=== PATIENT | female | born 1945 | race Caucasian/White ===

== ENCOUNTER 2016-07-11 08:01 | Outpatient (CLI) | payer MEDICARE ==
[2016-07-11 09:25] LABS: ALT (SGPT) 19 U/L (0-55); AST (SGOT) 37 U/L (5-34); Albumin 2.8 g/dL (3.4-4.8); Alkaline Phosphatase 70 U/L (40-150); Anion Gap 14 mmol/L (10-20); BUN (Urea Nitrogen) 11 mg/dL (9.8-20.1); Bilirubin, Direct 0.9 mg/dL (0.1-0.3); Bilirubin, Total 2.9 mg/dL (0.2-1.2); Calc. Creatinine Clearance 0 mL/min (70-130); Calcium 9.2 mg/dL (7.8-10.44); Carbon Dioxide 25 mmol/L (23-31); Cardiac Risk 2.7 (Less than 4.5); Chloride 108 mmol/L (98-107); Cholesterol 119 mg/dL (< 200 Desired); Estimated GFR-MDRD 65; Glucose 91 mg/dL (83-110); HDL Cholesterol 44 mg/dL (>60 Neg Risk); LDL Cholesterol, Calculated 61 mg/dL; Potassium 4.3 mmol/L (3.5-5.1); Sodium 143 mmol/L (136-145); Triglycerides 71 mg/dL (Less than 150)
== END 2016-07-11 08:02 | disposition home or self-care (01) ==
LOC: MADLABBHPM 08:01
PROVIDERS: ATTEND Family Medicine
DX: I10 Essential (primary) hypertension (principal)
CPT/HCPCS: 36415; 80048; 80061; 80076

== ENCOUNTER 2016-07-15 08:56 | Outpatient (CLI) | payer MEDICARE ==
--- NOTE | 2016-07-15 13:34 | ULT ---
RIGHT UPPER QUADRANT SONOGRAM: History: Abnormal liver function tests. FINDINGS: A small nonshadowing echogenic material layers within the dependent portion of the gallbladder lumen . The gallbladder is distended up to 8.3 cm. There is no gallbladder wall thickening or pericholec ystic fluid. Common duct is 0.4 cm diameter. Liver is unremarkable without focal mass or intrahepa tic biliary dilatation. No free fluid is evident. IMPRESSION: Biliary sludge is evidence of chronic gallbladder dyskinesis. Gallbladder is distended. Patient wa s reportedly tender over the gallbladder fossa at the time of the exam although there were no other findings of acute cholecystitis. Clinical correlation regarding other signs and symptoms of acute c holecystitis is required. Radionuclide hepatobiliary scan could be of use to evaluate for cystic du ct patency if needed. POS: [facility]
== END 2016-07-15 08:57 | disposition home or self-care (01) ==
LOC: MADULT 08:56
PROVIDERS: ATTEND Family Medicine
DX: R94.5 Abnormal results of liver function studies (principal)
CPT/HCPCS: 76705

== ENCOUNTER 2016-08-12 08:18 | Outpatient (CLI) | payer MEDICARE ==
[2016-08-12 09:13] LABS: ALT (SGPT) 17 U/L (0-55); AST (SGOT) 35 U/L (5-34); Albumin 2.8 g/dL (3.4-4.8); Alkaline Phosphatase 74 U/L (40-150); Anion Gap 12 mmol/L (10-20); BUN (Urea Nitrogen) 13 mg/dL (9.8-20.1); Bilirubin, Total 2.8 mg/dL (0.2-1.2); Calc. Creatinine Clearance 0 mL/min (70-130); Calcium 8.4 mg/dL (7.8-10.44); Carbon Dioxide 26 mmol/L (23-31); Cardiac Risk 2.9 (Less than 4.5); Chloride 106 mmol/L (98-107); Cholesterol 117 mg/dL (< 200 Desired); Estimated GFR-MDRD 68; Glucose 92 mg/dL (83-110); HDL Cholesterol 40 mg/dL (>60 Neg Risk); LDL Cholesterol, Calculated 64 mg/dL; Protein, Total 6.1 g/dL (5.8-8.1); Sodium 140 mmol/L (136-145); Triglycerides 66 mg/dL (Less than 150)
[2016-08-12 09:40] LABS: #Eosinphils 0.1 thou/uL (0.0-0.7); #Lymphocytes 1.8 thou/uL (1.20-3.40); #Monocytes 0.4 thou/uL (0.11-0.59); #Neutrophils 3.1 thou/uL (1.40-6.50); %Basophils 0.8 % (0.0-1.0); %Eosinophils 2.5 % (0.0-10.0); %Lymphocytes 32.7 % (21.0-51.0); %Monocytes 7.6 % (0.0-10.0); %Neutrophils 56.4 % (42.0-75.0); Anisocytosis SLIGHT = 6-15 cells (100X) (0-5/hpf); Hemoglobin 11.1 g/dL (12.0-16.0); Large Platelets SLIGHT; MDiff Complete? YES; Mean Corpuscular HGB CONC 35.2 g/dL (32.0-36.0); Mean Corpuscular Hemoglobin 36.2 pg (27.0-31.0); Mean Corpuscular Volume 102.8 fl (81.0-99.0); Mean Platelet Volume 7.4 fL (7.4-10.4); Platelet Count 93 thou/uL (130-400); Red Blood Cell (RBC) Count 3.07 mill/uL (4.20-5.40); White Blood Cell (WBC) Count 5.5 thou/uL (4.8-10.8)
== END 2016-08-12 08:19 ==
LOC: MADLABBHPM 08:18
PROVIDERS: ATTEND Family Medicine
DX: R94.5 Abnormal results of liver function studies (principal)
CPT/HCPCS: 36415; 80048; 80061; 80076; 85025

== ENCOUNTER 2016-10-27 07:45 | Outpatient (CLI) | payer MEDICARE ==
[2016-10-27 09:09] LABS: ALT (SGPT) 24 U/L (8-55); AST (SGOT) 45 U/L (5-34); Albumin 2.5 g/dL (3.4-4.8); Alkaline Phosphatase 74 U/L (40-150); Bilirubin, Direct 1.2 mg/dL (0.1-0.3); Bilirubin, Total 3.8 mg/dL (0.2-1.2); Protein, Total 6.1 g/dL (5.8-8.1)
== END 2016-10-27 07:46 | disposition home or self-care (01) ==
LOC: MADLAB 07:45
PROVIDERS: ATTEND Internal Medicine Gastroenterology
DX: K74.60 Unspecified cirrhosis of liver (principal); R78.79 Finding of abnormal level of heavy metals in blood; R94.5 Abnormal results of liver function studies
CPT/HCPCS: 36415; 80076

== ENCOUNTER 2016-10-31 07:36 | Outpatient (CLI) | payer MEDICARE ==
[2016-10-31 08:30] LABS: INR-International Normal Ratio 1.6; PTT 33.6 SEC (22.9-36.1); Prothrombin Time 19.3 SEC (12.0-14.7)
[2016-10-31 08:39] LABS: Alkaline Phosphatase 77 U/L (40-150); Calc. Creatinine Clearance 0 mL/min (70-130); Estimated GFR-MDRD 53
[2016-10-31 08:40] LABS: Anion Gap 12 mmol/L (10-20); Bilirubin, Direct 1.6 mg/dL (0.1-0.3); Bilirubin, Total 5.5 mg/dL (0.2-1.2); Carbon Dioxide 28 mmol/L (23-31)
[2016-10-31 08:45] LABS: ALT (SGPT) 24 U/L (8-55); AST (SGOT) 41 U/L (5-34); Albumin 2.5 g/dL (3.4-4.8); BUN (Urea Nitrogen) 14 mg/dL (9.8-20.1); Calcium 8.8 mg/dL (7.8-10.44); Cardiac Risk 3.7 (Less than 4.5); Chloride 100 mmol/L (98-107); Cholesterol 92 mg/dl (< 200 Desired); Glucose 93 mg/dL (83-110); HDL Cholesterol 25 mg/dL (>60 Neg Risk); LDL Cholesterol, Calculated 52 mg/dL; Potassium 3.2 mmol/L (3.5-5.1); Protein, Total 6.2 g/dL (6.0-8.3); Sodium 137 mmol/L (136-145); Triglycerides 75 mg/dL (Less than 150)
[2016-10-31 10:09] LABS: #Basophils 0.1 thou/uL (0.0-0.2); #Eosinphils 0.1 thou/uL (0.0-0.7); #Lymphocytes 1.6 thou/uL (1.20-3.40); #Monocytes 0.6 thou/uL (0.11-0.59); #Neutrophils 4.1 thou/uL (1.40-6.50); %Basophils 1.9 % (0.0-1.0); %Eosinophils 1.8 % (0.0-10.0); %Monocytes 8.5 % (0.0-10.0); %Neutrophils 62.9 % (42.0-75.0); Anisocytosis MODERATE=16-30 cells (100X) (0-5/hpf); Hemoglobin 10.9 g/dL (12.0-16.0); Hypochromia MODERATE=16-30 cells (100X) (0-5/hpf); MDiff Complete? YES; Mean Corpuscular HGB CONC 35.2 g/dL (32.0-36.0); Mean Corpuscular Hemoglobin 37.9 pg (27.0-31.0); Mean Corpuscular Volume 107.8 fl (81.0-99.0); Mean Platelet Volume 6.3 fL (7.4-10.4); PLT Morphology Comment Appears Decreased; Platelet Count 102 thou/uL (130-400); RBC Distribution Width 13.9 % (11.5-14.5); Red Blood Cell (RBC) Count 2.87 mill/uL (4.20-5.40); White Blood Cell (WBC) Count 6.5 thou/uL (4.8-10.8)
[2016-10-31 17:41] LABS: HBSAg Index 0.26 S/CO (0-0.99); Hep A IgM AB Non-Reactive (NonReactive); Hep A IgM S/CO 0.22 S/CO (0-0.79); Hep B Surf Ag Non-Reactive S/CO (NonReactive); Hep C IgG Ab Non-Reactive (NonReactive); Hep C Index 0.16 S/CO (0-0.79); Hepatitis B Core IGM Abs Non-Reactive (NonReactive)
== END 2016-10-31 07:37 ==
LOC: MADLAB 07:36
PROVIDERS: ATTEND Urology
DX: N28.89 Other specified disorders of kidney and ureter (principal); N32.89 Other specified disorders of bladder; R18.8 Other ascites
CPT/HCPCS: 36415; 80048; 80061; 80074; 80076; 81256; 85025; 85610; 85730

== ENCOUNTER 2016-11-07 13:22 | Outpatient (CLI) | payer MEDICARE ==
[2016-11-07 14:39] LABS: Anion Gap 13 mmol/L (10-20); BUN (Urea Nitrogen) 16 mg/dL (9.8-20.1); Calc. Creatinine Clearance 0 mL/min (70-130); Calcium 8.3 mg/dL (7.8-10.44); Carbon Dioxide 29 mmol/L (23-31); Chloride 98 mmol/L (98-107); Estimated GFR-MDRD 47; Glucose 136 mg/dL (83-110); Potassium 3.4 mmol/L (3.5-5.1); Sodium 137 mmol/L (136-145)
== END 2016-11-07 13:23 | disposition home or self-care (01) ==
LOC: MADLAB 13:22
PROVIDERS: ATTEND Urology
DX: N28.89 Other specified disorders of kidney and ureter (principal)
CPT/HCPCS: 36415; 80048

== ENCOUNTER 2016-11-14 08:39 | Outpatient (CLI) | payer MEDICARE ==
[2016-11-14 09:11] LABS: Anion Gap 13 mmol/L (10-20); BUN (Urea Nitrogen) 17 mg/dL (9.8-20.1); Calc. Creatinine Clearance 0 mL/min (70-130); Calcium 8.1 mg/dL (7.8-10.44); Carbon Dioxide 28 mmol/L (23-31); Chloride 98 mmol/L (98-107); Estimated GFR-MDRD 46; Glucose 81 mg/dL (83-110); Sodium 135 mmol/L (136-145)
== END 2016-11-14 08:40 | disposition home or self-care (01) ==
LOC: MADLAB 08:39
PROVIDERS: ATTEND Urology
DX: I10 Essential (primary) hypertension (principal)
CPT/HCPCS: 36415; 80048

== ENCOUNTER 2016-11-19 11:08 | Outpatient (CLI) | payer MEDICARE ==
[2016-11-19 11:38] LABS: Anion Gap 16 mmol/L (10-20); BUN (Urea Nitrogen) 37 mg/dL (9.8-20.1); Calc. Creatinine Clearance 0 mL/min (70-130); Carbon Dioxide 24 mmol/L (23-31); Chloride 95 mmol/L (98-107); Estimated GFR-MDRD 16; Glucose 96 mg/dL (83-110); Potassium 4.8 mmol/L (3.5-5.1); Sodium 130 mmol/L (136-145)
== END 2016-11-19 11:09 | disposition home or self-care (01) ==
LOC: MADLABBHPM 11:08
PROVIDERS: ATTEND Family Medicine
DX: N17.9 Acute kidney failure, unspecified (principal)
CPT/HCPCS: 36415; 80048

== ENCOUNTER 2017-01-15 07:15 | Outpatient (CLI) | payer MEDICARE ==
[2017-01-15 08:11] LABS: INR-International Normal Ratio 1.7; Prothrombin Time 20.3 SEC (12.0-14.7)
[2017-01-15 08:18] LABS: #Basophils 0.1 thou/uL (0.0-0.2); #Eosinphils 0.1 thou/uL (0.0-0.7); #Lymphocytes 1.4 thou/uL (1.20-3.40); #Monocytes 0.5 thou/uL (0.11-0.59); #Neutrophils 3.3 thou/uL (1.40-6.50); %Basophils 1.3 % (0.0-1.0); %Eosinophils 2.1 % (0.0-10.0); %Lymphocytes 25.5 % (21.0-51.0); %Monocytes 9.2 % (0.0-10.0); %Neutrophils 61.9 % (42.0-75.0); Hemoglobin 9.6 g/dL (12.0-16.0); Mean Corpuscular HGB CONC 33.8 g/dL (32.0-36.0); Mean Corpuscular Hemoglobin 36.5 pg (27.0-31.0); Mean Corpuscular Volume 108.1 fl (81.0-99.0); Mean Platelet Volume 6.4 fL (7.4-10.4); Platelet Count 102 thou/uL (130-400); RBC Distribution Width 13.4 % (11.5-14.5); Red Blood Cell (RBC) Count 2.62 mill/uL (4.20-5.40); White Blood Cell (WBC) Count 5.4 thou/uL (4.8-10.8)
[2017-01-15 08:22] LABS: ALT (SGPT) 24 U/L (8-55); AST (SGOT) 38 U/L (5-34); Albumin 2.9 g/dL (3.4-4.8); Alkaline Phosphatase 76 U/L (40-150); Anion Gap 12 mmol/L (10-20); BUN (Urea Nitrogen) 23 mg/dL (9.8-20.1); Bilirubin, Total 2.5 mg/dL (0.2-1.2); Calc. Creatinine Clearance 0 mL/min (70-130); Calcium 9.1 mg/dL (7.8-10.44); Carbon Dioxide 19 mmol/L (23-31); Chloride 108 mmol/L (98-107); Estimated GFR-MDRD 46; Globulin 4.5 g/dL (2.4-3.5); Glucose 92 mg/dL (83-110); Potassium 4.3 mmol/L (3.5-5.1); Protein, Total 7.4 g/dL (6.0-8.3); Sodium 135 mmol/L (136-145)
[2017-01-15 10:13] LABS: Anisocytosis SLIGHT = 6-15 cells (100X) (0-5/hpf); Microcytosis SLIGHT = 6-15 cells (100X) (0-5/hpf)
[2017-01-15 10:14] LABS: PLT Morphology Comment Appears Decreased
== END 2017-01-15 07:16 | disposition home or self-care (01) ==
LOC: MADLABBHPM 07:15
PROVIDERS: ATTEND Family Medicine
DX: E78.00 Pure hypercholesterolemia, unspecified (principal); I10 Essential (primary) hypertension; K74.60 Unspecified cirrhosis of liver
CPT/HCPCS: 36415; 80053; 82140; 85025; 85610

== ENCOUNTER 2017-01-29 07:44 | Outpatient (CLI) | payer MEDICARE ==
[2017-01-29 08:52] LABS: INR-International Normal Ratio 1.6; PTT 33.2 SEC (22.9-36.1); Prothrombin Time 19.8 SEC (12.0-14.7)
[2017-01-29 08:56] LABS: Anion Gap 12 mmol/L (10-20); BUN (Urea Nitrogen) 25 mg/dL (9.8-20.1); Calc. Creatinine Clearance 0 mL/min (70-130); Calcium 8.8 mg/dL (7.8-10.44); Carbon Dioxide 24 mmol/L (23-31); Chloride 102 mmol/L (98-107); Estimated GFR-MDRD 43; Glucose 89 mg/dL (83-110); Potassium 4.7 mmol/L (3.5-5.1); Sodium 133 mmol/L (136-145)
[2017-01-29 10:13] LABS: Clarity Hazy (Clear); Specific Gravity, Urine 1.015 (1.005-1.030); pH, Urine 5.5 (5.0-9.0)
[2017-01-29 10:14] LABS: Bacteria/HPF Rare-Few HPF (None Seen); Bilirubin Negative (Negative); Blood, Urine Trace (Negative); Glucose, Urine (Dipstick) Negative (Negative); Leukocyte Negative (Negative); Nitrite Negative (Negative); Protein, Urine (Dipstick) Negative (Neg-Trace); RBC/HPF 0-3 HPF (0-3); Urobilinogen 0.2 mg/dL (0.2-1.0); WBC/HPF 0-3 HPF (0-3)
[2017-01-29 10:46] LABS: #Basophils 0.1 thou/uL (0.0-0.2); #Eosinphils 0.1 thou/uL (0.0-0.7); #Lymphocytes 1.2 thou/uL (1.20-3.40); #Monocytes 0.6 thou/uL (0.11-0.59); #Neutrophils 3.9 thou/uL (1.40-6.50); %Eosinophils 1.6 % (0.0-10.0); %Lymphocytes 20.2 % (21.0-51.0); %Monocytes 9.4 % (0.0-10.0); %Neutrophils 67.8 % (42.0-75.0); Anisocytosis SLIGHT = 6-15 cells (100X) (0-5/hpf); Hemoglobin 10.7 g/dL (12.0-16.0); Mean Corpuscular HGB CONC 36.6 g/dL (32.0-36.0); Mean Corpuscular Hemoglobin 39.4 pg (27.0-31.0); Mean Corpuscular Volume 107.9 fl (81.0-99.0); Mean Platelet Volume 6.9 fL (7.4-10.4); Platelet Count 117 thou/uL (130-400); RBC Distribution Width 13.2 % (11.5-14.5); White Blood Cell (WBC) Count 5.8 thou/uL (4.8-10.8)
[2017-01-29 10:54] LABS: PLT Morphology Comment Appears Decreased
== END 2017-01-29 07:45 | disposition home or self-care (01) ==
LOC: MADLAB 07:44
PROVIDERS: ATTEND Urology
DX: C67.2 Malignant neoplasm of lateral wall of bladder (principal); R17 Unspecified jaundice; R79.1 Abnormal coagulation profile
CPT/HCPCS: 36415; 80048; 81001; 85025; 85610; 85730; 87086

== ENCOUNTER 2017-02-12 07:34 | Outpatient (CLI) | payer MEDICARE ==
[2017-02-12 08:56] LABS: INR-International Normal Ratio 1.6; Prothrombin Time 19.1 SEC (12.0-14.7)
[2017-02-12 09:24] LABS: ALT (SGPT) 26 U/L (8-55); AST (SGOT) 43 U/L (5-34); Albumin 2.9 g/dL (3.4-4.8); Alkaline Phosphatase 85 U/L (40-150); Anion Gap 15 mmol/L (10-20); BUN (Urea Nitrogen) 21 mg/dL (9.8-20.1); Bilirubin, Total 2.1 mg/dL (0.2-1.2); Calc. Creatinine Clearance 0 mL/min (70-130); Calcium 9.2 mg/dL (7.8-10.44); Carbon Dioxide 22 mmol/L (23-31); Chloride 99 mmol/L (98-107); Estimated GFR-MDRD 37; Globulin 4.5 g/dL (2.4-3.5); Glucose 93 mg/dL (83-110); Potassium 4.9 mmol/L (3.5-5.1); Protein, Total 7.4 g/dL (6.0-8.3); Sodium 131 mmol/L (136-145)
[2017-02-12 09:36] LABS: #Basophils 0.1 thou/uL (0.0-0.2); #Eosinphils 0.1 thou/uL (0.0-0.7); #Lymphocytes 1.4 thou/uL (1.20-3.40); #Monocytes 0.6 thou/uL (0.11-0.59); %Lymphocytes 22.3 % (21.0-51.0); %Monocytes 9.8 % (0.0-10.0); %Neutrophils 65.9 % (42.0-75.0); Anisocytosis SLIGHT = 6-15 cells (100X) (0-5/hpf); Hemoglobin 10.4 g/dL (12.0-16.0); Macrocytosis SLIGHT = 6-15 cells (100X) (0-5/hpf); Mean Corpuscular HGB CONC 33.4 g/dL (32.0-36.0); Mean Corpuscular Hemoglobin 35.7 pg (27.0-31.0); PLT Morphology Comment Appears Adequate; Platelet Count 129 thou/uL (130-400); RBC Distribution Width 12.8 % (11.5-14.5); Red Blood Cell (RBC) Count 2.91 mill/uL (4.20-5.40); White Blood Cell (WBC) Count 6.1 thou/uL (4.8-10.8)
== END 2017-02-12 07:35 | disposition home or self-care (01) ==
LOC: MADLABBHPM 07:34
PROVIDERS: ATTEND Family Medicine
DX: K74.60 Unspecified cirrhosis of liver (principal); N17.9 Acute kidney failure, unspecified; E87.6 Hypokalemia; I10 Essential (primary) hypertension
CPT/HCPCS: 36415; 80053; 85025; 85610

== ENCOUNTER 2017-05-07 08:10 | Outpatient (CLI) | payer MEDICARE ==
[2017-05-07 09:09] LABS: INR-International Normal Ratio 1.5; PTT 33.3 SEC (22.9-36.1)
[2017-05-07 10:05] LABS: Hemoglobin 11.5 g/dL (12.0-16.0); Red Blood Cell (RBC) Count 3.25 mill/uL (4.20-5.40); White Blood Cell (WBC) Count 8.2 thou/uL (4.8-10.8)
[2017-05-07 10:06] LABS: #Basophils 0.1 thou/uL (0.0-0.2); #Eosinphils 0.8 thou/uL (0.0-0.7); #Lymphocytes 1.3 thou/uL (1.20-3.40); #Monocytes 0.7 thou/uL (0.11-0.59); #Neutrophils 5.3 thou/uL (1.40-6.50); %Eosinophils 10.1 % (0.0-10.0); %Lymphocytes 15.8 % (21.0-51.0); %Monocytes 8.6 % (0.0-10.0); %Neutrophils 64.5 % (42.0-75.0); Mean Corpuscular HGB CONC 33.6 g/dL (32.0-36.0); Mean Corpuscular Hemoglobin 35.4 pg (27.0-31.0); Mean Platelet Volume 7.1 fL (7.4-10.4); Platelet Count 150 thou/uL (130-400); RBC Distribution Width 13.1 % (11.5-14.5)
[2017-05-07 10:24] LABS: Bilirubin Negative (Negative); Blood, Urine Trace (Negative); Clarity Clear (Clear); Glucose, Urine (Dipstick) Negative (Negative); Leukocyte Negative (Negative); Nitrite Negative (Negative); Protein, Urine (Dipstick) Negative (Neg-Trace); Specific Gravity, Urine 1.025 (1.005-1.030); Urobilinogen 0.2 mg/dL (0.2-1.0); pH, Urine 5.5 (5.0-9.0)
[2017-05-07 10:33] LABS: BUN (Urea Nitrogen) 21 mg/dL (9.8-20.1); Calc. Creatinine Clearance 0 mL/min (70-130); Carbon Dioxide 24 mmol/L (23-31); Chloride 100 mmol/L (98-107); Estimated GFR-MDRD 38; Potassium 4.3 mmol/L (3.5-5.1); Sodium 133 mmol/L (136-145)
[2017-05-07 11:01] LABS: Bilirubin, Total 2.2 mg/dL (0.2-1.2); Calcium 9.4 mg/dL (7.8-10.44); Glucose 96 mg/dL (83-110)
[2017-05-07 11:02] LABS: ALT (SGPT) 27 U/L (8-55); AST (SGOT) 44 U/L (5-34); Albumin 2.8 g/dL (3.4-4.8); Alkaline Phosphatase 95 U/L (40-150); Bilirubin, Direct 0.9 mg/dL (0.1-0.3); Protein, Total 7.5 g/dL (5.8-8.1)
[2017-05-07 11:03] LABS: Anion Gap 13 mmol/L (10-20)
== END 2017-05-07 08:11 | disposition home or self-care (01) ==
LOC: MADLAB 08:10
PROVIDERS: ATTEND Family Medicine
DX: C67.2 Malignant neoplasm of lateral wall of bladder (principal); E83.10 Disorder of iron metabolism, unspecified; E87.6 Hypokalemia; N17.9 Acute kidney failure, unspecified; I10 Essential (primary) hypertension; R79.1 Abnormal coagulation profile
CPT/HCPCS: 36415; 80048; 80076; 81001; 85025; 85610; 85730; 87086

== ENCOUNTER 2017-07-14 09:23 | Outpatient (CLI) | payer MEDICARE ==
[2017-07-14 10:03] LABS: INR-International Normal Ratio 1.5; PTT 31.9 SEC (22.9-36.1); Prothrombin Time 18.9 SEC (12.0-14.7)
[2017-07-14 10:08] LABS: #Basophils 0.1 thou/uL (0.0-0.2); #Eosinphils 0.1 thou/uL (0.0-0.7); #Monocytes 0.8 thou/uL (0.11-0.59); #Neutrophils 6.3 thou/uL (1.40-6.50); %Basophils 0.7 % (0.0-1.0); %Eosinophils 0.6 % (0.0-10.0); %Lymphocytes 12.4 % (21.0-51.0); %Monocytes 9.5 % (0.0-10.0); %Neutrophils 76.8 % (42.0-75.0); Hemoglobin 11.9 g/dL (12.0-16.0); Mean Corpuscular Hemoglobin 34.5 pg (27.0-31.0); Mean Corpuscular Volume 107.7 fl (81.0-99.0); Mean Platelet Volume 6.4 fL (7.4-10.4); Platelet Count 179 thou/uL (130-400); RBC Distribution Width 13.7 % (11.5-14.5); Red Blood Cell (RBC) Count 3.46 mill/uL (4.20-5.40); White Blood Cell (WBC) Count 8.4 thou/uL (4.8-10.8)
[2017-07-14 10:13] LABS: ALT (SGPT) 19 U/L (8-55); AST (SGOT) 34 U/L (5-34); Albumin 2.7 g/dL (3.4-4.8); Alkaline Phosphatase 103 U/L (40-150); Anion Gap 15 mmol/L (10-20); BUN (Urea Nitrogen) 21 mg/dL (9.8-20.1); Bilirubin, Total 2.6 mg/dL (0.2-1.2); Calc. Creatinine Clearance 0 mL/min (70-130); Carbon Dioxide 22 mmol/L (23-31); Chloride 98 mmol/L (98-107); Estimated GFR-MDRD 30; Globulin 4.6 g/dL (2.4-3.5); Glucose 107 mg/dL (83-110); Potassium 3.9 mmol/L (3.5-5.1); Protein, Total 7.3 g/dL (6.0-8.3); Sodium 131 mmol/L (136-145)
[2017-07-14 10:27] LABS: MDiff Complete? YES
[2017-07-14 10:28] LABS: Elliptocytes SLIGHT = 2-5 cells (100X) (0-1/hpf); Macrocytosis SLIGHT = 6-15 cells (100X) (0-5/hpf); Target Cells SLIGHT = 2-5 cells (100X) (0-1/hpf)
== END 2017-07-14 09:24 | disposition home or self-care (01) ==
LOC: MADLABBHPM 09:23
PROVIDERS: ATTEND Family Medicine
DX: I10 Essential (primary) hypertension (principal); E78.00 Pure hypercholesterolemia, unspecified
CPT/HCPCS: 36415; 80053; 85025; 85610; 85730

== ENCOUNTER 2017-08-13 07:49 | Outpatient (CLI) | payer MEDICARE ==
[2017-08-13 09:24] LABS: INR-International Normal Ratio 1.5; Prothrombin Time 18.3 SEC (12.0-14.7)
[2017-08-13 09:35] LABS: #Basophils 0.1 thou/uL (0.0-0.2); #Eosinphils 0.1 thou/uL (0.0-0.7); #Lymphocytes 1.3 thou/uL (1.20-3.40); #Monocytes 0.7 thou/uL (0.11-0.59); #Neutrophils 4.4 thou/uL (1.40-6.50); %Basophils 1.1 % (0.0-1.0); %Eosinophils 1.3 % (0.0-10.0); %Lymphocytes 19.9 % (21.0-51.0); %Monocytes 10.1 % (0.0-10.0); %Neutrophils 67.6 % (42.0-75.0); Hemoglobin 11.4 g/dL (12.0-16.0); Mean Corpuscular HGB CONC 33.1 g/dL (32.0-36.0); Mean Corpuscular Hemoglobin 35.2 pg (27.0-31.0); Mean Corpuscular Volume 106.5 fl (81.0-99.0); Mean Platelet Volume 7.1 fL (7.4-10.4); Platelet Count 158 thou/uL (130-400); RBC Distribution Width 14.1 % (11.5-14.5); Red Blood Cell (RBC) Count 3.23 mill/uL (4.20-5.40); White Blood Cell (WBC) Count 6.5 thou/uL (4.8-10.8)
[2017-08-13 09:41] LABS: ALT (SGPT) 19 U/L (8-55); AST (SGOT) 35 U/L (5-34); Albumin 2.5 g/dL (3.4-4.8); Alkaline Phosphatase 90 U/L (40-150); Anion Gap 15 mmol/L (10-20); BUN (Urea Nitrogen) 24 mg/dL (9.8-20.1); Bilirubin, Direct 1.1 mg/dL (0.1-0.3); Bilirubin, Total 2.5 mg/dL (0.2-1.2); Calc. Creatinine Clearance 0 mL/min (70-130); Calcium 8.5 mg/dL (7.8-10.44); Carbon Dioxide 21 mmol/L (23-31); Chloride 100 mmol/L (98-107); Estimated GFR-MDRD 31; Glucose 93 mg/dL (83-110); Potassium 4.6 mmol/L (3.5-5.1); Protein, Total 6.5 g/dL (6.0-8.3); Sodium 131 mmol/L (136-145)
[2017-08-13 09:46] LABS: Bilirubin Negative (Negative); Blood, Urine Small (Negative); Glucose, Urine (Dipstick) Negative (Negative); Leukocyte Trace (Negative); Nitrite Negative (Negative); Protein, Urine (Dipstick) Negative (Neg-Trace); Urobilinogen 0.2 mg/dL (0.2-1.0); pH, Urine 5.5 (5.0-9.0)
[2017-08-13 09:47] LABS: Anisocytosis SLIGHT = 6-15 cells (100X) (0-5/hpf); Macrocytosis SLIGHT = 6-15 cells (100X) (0-5/hpf)
[2017-08-13 09:48] LABS: PLT Morphology Comment Appears Adequate
[2017-08-13 09:56] LABS: Clarity Hazy (Clear)
[2017-08-13 09:57] LABS: RBC/HPF 0-3 HPF (0-3)
[2017-08-13 09:58] LABS: Bacteria/HPF 2+ HPF (None Seen); Yeast-All Forms 1+ HPF (None Seen)
== END 2017-08-13 07:50 | disposition home or self-care (01) ==
LOC: MADLAB 07:49
PROVIDERS: ATTEND Urology
DX: C67.2 Malignant neoplasm of lateral wall of bladder (principal); R79.1 Abnormal coagulation profile; N17.9 Acute kidney failure, unspecified; E87.6 Hypokalemia
CPT/HCPCS: 36415; 80048; 80076; 81001; 85025; 85610; 85730; 87086

== ENCOUNTER 2017-10-07 07:40 | Outpatient (CLI) | payer MEDICARE ==
[2017-10-07 09:33] LABS: ALT (SGPT) 21 U/L (8-55); AST (SGOT) 39 U/L (5-34); Albumin 2.6 g/dL (3.4-4.8); Alkaline Phosphatase 81 U/L (40-150); Anion Gap 15 mmol/L (10-20); BUN (Urea Nitrogen) 28 mg/dL (9.8-20.1); Bilirubin, Total 2.3 mg/dL (0.2-1.2); Calc. Creatinine Clearance 0 mL/min (70-130); Calcium 8.6 mg/dL (7.8-10.44); Carbon Dioxide 22 mmol/L (23-31); Chloride 100 mmol/L (98-107); Estimated GFR-MDRD 30; Globulin 4.1 g/dL (2.4-3.5); Glucose 90 mg/dL (83-110); Protein, Total 6.7 g/dL (6.0-8.3); Sodium 133 mmol/L (136-145)
[2017-10-07 10:06] LABS: Hemoglobin 11.2 g/dL (12.0-16.0); Mean Corpuscular HGB CONC 35.4 g/dL (32.0-36.0); Mean Corpuscular Hemoglobin 35.9 pg (27.0-31.0); Mean Corpuscular Volume 101.4 fl (81.0-99.0); Mean Platelet Volume 5.7 fL (7.4-10.4); Platelet Count 156 thou/uL (130-400); RBC Distribution Width 14.1 % (11.5-14.5); Red Blood Cell (RBC) Count 3.11 mill/uL (4.20-5.40); White Blood Cell (WBC) Count 7.4 thou/uL (4.8-10.8)
[2017-10-07 10:29] LABS: INR-International Normal Ratio 1.6; PTT 35.1 SEC (22.9-36.1)
[2017-10-07 10:39] LABS: Anisocytosis SLIGHT = 6-15 cells (100X) (0-5/hpf); Band 3 % (5-11); Eosinophils 2 % (0-10); Lymphocytes 19 % (21-51); MDiff Complete? YES; Monocytes 6 % (0-10); Neutrophil 70 % (42-75); Poikilocytosis SLIGHT = 6-15 cells (100X) (0-5/hpf)
[2017-10-07 10:40] LABS: PLT Morphology Comment Appears Adequate
== END 2017-10-07 07:41 | disposition home or self-care (01) ==
LOC: MADLAB 07:40
PROVIDERS: ATTEND Family Medicine
DX: I12.9 Hypertensive chronic kidney disease with stage 1 through stage 4 chronic kidney disease, or unspecified chronic kidney disease (principal); N18.9 Chronic kidney disease, unspecified
CPT/HCPCS: 36415; 80053; 85007; 85027; 85610; 85730

== ENCOUNTER 2017-11-30 07:11 | Outpatient (CLI) | payer MEDICARE ==
[2017-11-30 08:00] LABS: Anion Gap 17 mmol/L (10-20); BUN (Urea Nitrogen) 30 mg/dL (9.8-20.1); Calc. Creatinine Clearance 0 mL/min (70-130); Calcium 8.9 mg/dL (7.8-10.44); Carbon Dioxide 20 mmol/L (23-31); Chloride 101 mmol/L (98-107); Estimated GFR-MDRD 22; Glucose 85 mg/dL (83-110); Potassium 4.9 mmol/L (3.5-5.1); Sodium 133 mmol/L (136-145)
== END 2017-11-30 07:12 ==
LOC: MADLABBHPM 07:11
PROVIDERS: ATTEND Family Medicine
DX: R60.9 Edema, unspecified (principal)
CPT/HCPCS: 36415; 80048

== ENCOUNTER 2017-12-25 13:39 | Outpatient (CLI) | payer MEDICARE ==
[2017-12-25 14:42] LABS: ALT (SGPT) 18 U/L (8-55); AST (SGOT) 31 U/L (5-34); Albumin 2.5 g/dL (3.4-4.8); Alkaline Phosphatase 108 U/L (40-150); Anion Gap 16 mmol/L (10-20); BUN (Urea Nitrogen) 32 mg/dL (9.8-20.1); Bilirubin, Total 2.5 mg/dL (0.2-1.2); Calc. Creatinine Clearance 0 mL/min (70-130); Calcium 8.4 mg/dL (7.8-10.44); Carbon Dioxide 20 mmol/L (23-31); Chloride 103 mmol/L (98-107); Estimated GFR-MDRD 22; Glucose 97 mg/dL (83-110); INR-International Normal Ratio 1.5; Potassium 4.9 mmol/L (3.5-5.1); Protein, Total 6.5 g/dL (6.0-8.3); Sodium 134 mmol/L (136-145)
== END 2017-12-25 13:40 | disposition home or self-care (01) ==
LOC: MADLABBHPM 13:39
PROVIDERS: ATTEND Urology
DX: N18.9 Chronic kidney disease, unspecified (principal); K74.60 Unspecified cirrhosis of liver; C67.2 Malignant neoplasm of lateral wall of bladder; R79.1 Abnormal coagulation profile; E83.10 Disorder of iron metabolism, unspecified
CPT/HCPCS: 36415; 80053; 85610

== ENCOUNTER 2018-02-24 09:40 | Outpatient (CLI) | payer MEDICARE ==
[2018-02-24 10:20] LABS: Anion Gap 13 mmol/L (10-20); BUN (Urea Nitrogen) 42 mg/dL (9.8-20.1); Calc. Creatinine Clearance 0 mL/min (70-130); Calcium 8.5 mg/dL (7.8-10.44); Chloride 106 mmol/L (98-107); Estimated GFR-MDRD 15; Glucose 85 mg/dL (83-110); Potassium 4.5 mmol/L (3.5-5.1); Sodium 135 mmol/L (136-145)
[2018-02-24 11:19] LABS: Carbon Dioxide 21 mmol/L (23-31)
== END 2018-02-24 09:41 | disposition home or self-care (01) ==
LOC: MADLABBHPM 09:40
PROVIDERS: ATTEND Family Medicine
DX: I10 Essential (primary) hypertension (principal)
CPT/HCPCS: 36415; 80048

== ENCOUNTER 2018-03-23 07:41 | Outpatient (CLI) | payer MEDICARE ==
[2018-03-23 08:53] LABS: Anion Gap 13 mmol/L (10-20); BUN (Urea Nitrogen) 44 mg/dL (9.8-20.1); Calc. Creatinine Clearance 0 mL/min (70-130); Calcium 9.1 mg/dL (7.8-10.44); Carbon Dioxide 23 mmol/L (23-31); Chloride 106 mmol/L (98-107); Estimated GFR-MDRD 15; Glucose 77 mg/dL (83-110); Potassium 5.3 mmol/L (3.5-5.1); Sodium 137 mmol/L (136-145)
== END 2018-03-23 07:42 | disposition home or self-care (01) ==
LOC: MADLAB 07:41
PROVIDERS: ATTEND Internal Medicine Nephrology
DX: I12.9 Hypertensive chronic kidney disease with stage 1 through stage 4 chronic kidney disease, or unspecified chronic kidney disease (principal); N18.4 Chronic kidney disease, stage 4 (severe); R60.9 Edema, unspecified
CPT/HCPCS: 36415; 80048; 82306; 83970